=== PATIENT | male | born 1940 | race Caucasian/White ===

== ENCOUNTER 2019-02-06 05:32 | Emergency (ER) | payer OTHER ==
[~2019-02-06] VITALS: Ht 180.3 cm; Wt 77.1 kg
[2019-02-06] MEDS ORDERED: HYDROcodone-ACET 10/325MG TAB PO ONE (08:30)
[2019-02-06] MEDS ORDERED: cefTRIAXone W LIDOCAINE 1 GM IM IM ONE (08:45)
[2019-02-06 14:00] VITALS: BP 140/79
--- NOTE | 2019-02-06 14:40 | NUR ---
Received Social Service consult to help pt find a ride home. Pt is 77 but is alert and oriented times 3. has [employer] but pt does not have a transportation benefit. Pt states he has no family here or friends who could take him home. Pt further states that he cannot walk and the ER physician was not helpful. Pt has Anna and social services suggested he arrange a ride down to [place] and see his own physician. Pt does have a Home Health Nurse who comes out once a month to change his catheter. Pt wanted to be admitted but he was discharged. Pt was asked by mold yard worker who he lived with and he stated his son. Asked pt if his son could come and pick him up. Pt stated his son did not have a car. However, during the consult the son called and stated he was on his way to pickle processor his father. Pt stated [place]
== END 2019-02-06 15:58 | disposition other institution (70) ==
LOC: ER 05:32
DX: N39.0 Urinary tract infection, site not specified (principal); K82.9 Disease of gallbladder, unspecified; T83.098A Other mechanical complication of other urinary catheter, initial encounter; E11.9 Type 2 diabetes mellitus without complications; I10 Essential (primary) hypertension
CPT/HCPCS: 74176; 96372; 99284; J0696

== ENCOUNTER 2019-02-13 03:59 | Emergency (ER) | payer OTHER ==
[~2019-02-13] VITALS: Ht 182.9 cm; Wt 81.6 kg
[2019-02-13] MEDS ORDERED: ONDANSETRON HCL 4 MG/2 ML VIAL IV ONE (06:00)
[2019-02-13] MEDS ORDERED: MORPHINE SULFATE 4 MG/ML SYR/VIAL IV ONE (06:00)
[2019-02-13] MEDS ORDERED: SODIUM CHLORIDE 0.9% 1,000 ML IV ONE ×2 (06:00→10:30)
[2019-02-13 06:52] LABS: Hematocrit 39.8 % (41.0-53.0); Hemoglobin 12.2 g/dL (13.5-17.5); Mean Corpuscular Hemoglobin 21.5 pg (28.0-32.0); Mean Corpuscular Hgb Conc. 30.5 g/dL (32.0-36.0); Mean Corpuscular Volume 70.3 fL (80.0-100.0); Platelet Count (auto) 392 10^3/uL (140-450); Red Blood Cells 5.66 10^6/uL (4.5-5.90); White Blood Cell 26.5 10^3/uL (4.4-10.8)
[2019-02-13 06:57] LABS: Red Cell Distribution Width 23.9 % (11.8-14.3)
[2019-02-13 07:00] LABS: Basophils % (manual) 0 (0.0-2.0); Blast Cells 0; Metamyelocytes % 0; Myelocytes % 0; Promyelocytes % 0; Reactive Lymphocytes 0
[2019-02-13 07:01] LABS: Albumin 1.7 g/dL (3.4-5.0); Calcium 7.4 mg/dL (8.5-10.1); Potassium 4.5 mmol/L (3.5-5.1)
[2019-02-13 07:06] LABS: BUN/Creatinine Ratio 24.2; Bilirubin, Total 1.8 mg/dL (0.2-1.0)
[2019-02-13 07:13] LABS: Lactic Acid w/Reflex 2.1 mmol/L (0.4-2.0)
[2019-02-13 07:38] LABS: Band Neutrophils % (manual) 2; Eosinophils % (manual) 1 (0-7); Lymphocytes % (manual) 3 (10.0-50.0); Monocytes % (manual) 3 (0-12)
[2019-02-13] MEDS ORDERED: cefTRIAXone 1GM/50ML D5W 50 ML IV ONE (08:15)
[2019-02-13] MEDS ORDERED: metroNIDAZOLE 500MG/100ML 100 ML IV ONE (08:15)
[2019-02-13 09:12] LABS: Urine Bacteria MANY /hpf (None Seen); Urine Blood 2+ /uL (Negative); Urine WBC 6089 /hpf (0 - 3); Urine WBC Clumps PRESENT /hpf (None Seen)
[2019-02-13] MEDS ORDERED: NOREPINEPHRINE 8 MG/250ML KIT 250 ML IV SCH (10:15)
[2019-02-13] MEDS ORDERED: NOREPINEPHRINE 8 MG/250ML KIT 250 ML IV ONE (10:17)
[2019-02-13] MEDS: NOREPINEPHRINE 8 MG/250ML KIT 250 ML IV SCH ×2 (10:23→12:01)
[2019-02-13 11:15] LABS: INR 2.8 (0.9-1.15); Partial Thromboplastin Time 49.5 sec (23.64-32.05)
[2019-02-13 13:05] VITALS: BP 104/52
== END 2019-02-13 13:18 | disposition short-term general hospital (02) ==
LOC: ER 03:59 → EDBD 03:59 → ER 13:18
DX: N39.0 Urinary tract infection, site not specified (principal); R39.9 Unspecified symptoms and signs involving the genitourinary system; E86.0 Dehydration; E11.9 Type 2 diabetes mellitus without complications; I10 Essential (primary) hypertension
CPT/HCPCS: 36415; 51702; 74176; 80053; 81001; 83605; 83880; 85007; 85027; 85610; 85730; 86141; 87040; 87086; 87088; 87186; 93005; 96361; 96365; 96367; 96375; 99285; J0696; J2270; J2405; J3490; J7030

== ENCOUNTER 2019-03-16 01:20 | Emergency (ER) | payer OTHER ==
[~2019-03-16] VITALS: Ht 182.9 cm; Wt 119.7 kg
[2019-03-16 02:10] LABS: Mean Corpuscular Volume 71.2 fL (80.0-100.0)
[2019-03-16 02:11] LABS: Hematocrit 41.8 % (41.0-53.0); Mean Corpuscular Hemoglobin 22.1 pg (28.0-32.0); Platelet Count (auto) 332 10^3/uL (140-450); Red Blood Cells 5.87 10^6/uL (4.5-5.90)
[2019-03-16 02:16] LABS: Basophils % (manual) 0 (0.0-2.0); Blast Cells 0; Eosinophils % (manual) 0 (0-7); Metamyelocytes % 0; Myelocytes % 0; Promyelocytes % 0; Reactive Lymphocytes 0; White Blood Cell 33.1 10^3/uL (4.4-10.8)
[2019-03-16 02:28] LABS: Alanine Aminotransferase 34 U/L (16-61); Albumin 1.3 g/dL (3.4-5.0); Anion Gap 9 (5-15); Aspartate Aminotransferase 117 U/L (15-37); BUN/Creatinine Ratio 22.9; Blood Urea Nitrogen 46 mg/dL (7-18); Calcium 7.4 mg/dL (8.5-10.1); Carbon Dioxide 21 mmol/L (21-32); Chloride 100 mmol/L (98-107); GFR African American 41 mL/min; GFR Non-African American 34 mL/min; Glucose 199 mg/dL (74-106); Magnesium 2.3 mg/dL (1.6-2.6); Sodium 130 mmol/L (136-145)
[2019-03-16 02:34] LABS: Alkaline Phosphatase 416 U/L (45-117); Bilirubin, Total 2.8 mg/dL (0.2-1.0); Total Protein 7.3 g/dL (6.4-8.2)
[2019-03-16 02:39] LABS: INR > 8.0 (0.9-1.15); Partial Thromboplastin Time 77.3 sec (23.64-32.05)
[2019-03-16 02:51] LABS: Band Neutrophils % (manual) 11; Lymphocytes % (manual) 1 (10.0-50.0); Monocytes % (manual) 1 (0-12)
[2019-03-16] MEDS ORDERED: PIPERACILLIN-TAZOB 3.375GM 100 ML IV ONE (07:00)
[2019-03-16] MEDS ORDERED: VANCOMYCIN PER PHARMACY 0 MG IV SCH (07:00)
[2019-03-16 07:21] LABS: Lactic Acid w/Reflex 2.6 mmol/L (0.4-2.0)
[2019-03-16] MEDS ORDERED: SODIUM CHLORIDE 0.9% 1,000 ML IV ONE ×2 (08:00)
[2019-03-16] MEDS ORDERED: VANCOMYCIN 1GM/250ML 250 ML IV ONE (08:00)
[2019-03-16 12:31] VITALS: BP 110/64
[2019-03-17] MEDS ORDERED: VANCOMYCIN 1GM/250ML 250 ML IV SCH (06:00)
== END 2019-03-16 12:58 | disposition other institution (70) ==
LOC: EDBD 01:20 → ER 01:25
DX: A41.9 Sepsis, unspecified organism (principal); R91.8 Other nonspecific abnormal finding of lung field; J90 Pleural effusion, not elsewhere classified; I31.3 Pericardial effusion (noninflammatory); D72.829 Elevated white blood cell count, unspecified; E11.9 Type 2 diabetes mellitus without complications; I10 Essential (primary) hypertension; I25.2 Old myocardial infarction; Z98.61 Coronary angioplasty status
CPT/HCPCS: 36415; 70450; 71250; 74176; 80053; 82140; 82962; 83605; 83735; 83880; 84484; 85007; 85027; 85610; 85730; 86850; 86900; 86901; 87040; 93005; 96365; 96366; 96368; 99284; J2543; J3370